=== PATIENT | female | born 1970 | race African-American/Black ===

== ENCOUNTER 2020-10-06 13:15 | Emergency (ER) | payer OTHER, SELFPAY ==
[2020-10-06 13:38] VITALS: BP 137/81; PULSE 70; RESP 20; TEMP 37.5; O2SAT 96; BMI 48.2
--- NOTE | 2020-10-06 13:56 | ECG_ITS ---
Test Reason : CHEST PAIN Blood Pressure : / mmHG Vent. Rate : 071 BPM Atrial Rate : 071 BPM P-R Int : 214 ms QRS Dur : 090 ms QT Int : 382 ms P-R-T Axes : 021 -46 -11 degrees QTc Int : 415 ms Sinus rhythm with 1st degree A-V block Left anterior fascicular block Possible Anterior infarct (cited on or before 31-JUL-2019) Abnormal ECG When compared with ECG of 31-JUL-2019 10:05, No significant change was found Referred By: Queta Jean Electronically Signed By:SINGH GARCIA MD
--- NOTE | 2020-10-06 13:56 | XR_ITS ---
EXAMINATION: XR CHEST CLINICAL INFORMATION: Chest and epigastric pain. COMPARISON: 07/31/2019 portable chest. TECHNIQUE: 2 views of the chest were obtained. FINDINGS: No significant abnormality is noted involving the heart, lungs, mediastinum, bony thorax or soft tissues. XR/XR chest 2V IMPRESSION: No acute cardiopulmonary process.
[2020-10-06 14:05] LABS: MANUAL DIFF FLAG NO
--- NOTE | 2020-10-06 14:08 | ED.CHESTPAIN ---
HPI - Chest Pain General Chief Complaint: Chest Pain Stated Complaint: chest pain, abd pain, diarrhea Time Seen by Provider: 10/06/20 13:56 Source: patient Mode of arrival: ambulatory Limitations: no limitations History of Present Illness HPI narrative: 50-year-old female with a past medical history of anxiety, asthma, depression, CVA with left-sided weakness, high cholesterol, hypertension here with complaints of epigastric pain with radiation up to the chest for 2 days. No nausea or vomiting. She does have some intermittent diarrhea. no fevers, chills, urinary symptoms. No cough. Pain is worsened after eating. She does have some intermittent shortness of breath was unchanged from previous. Of note, she was admitted 1 month ago to [facility] for similar symptoms. MD complaint: chest discomfort Onset (ago): day(s) Timing of current episode: episodic Prior episodes: Yes Onset: after eating Pain location: substernal and epigastric Pain radiation: none Severity: mild Quality: sharp Relieving factors: nothing Exacerbating factors: eating Treatment prior to arrival: none Related Data Allergies Allergy/AdvReac Type Severity Reaction Status Date / Time Penicillins [PENICILLINS] Allergy Unknown HIVES Verified 10/06/20 13:45 Review of Systems Review of Systems: Yes all other systems are reviewed and are negative Constitutional: Constitutional: Reports no additional constitutional complaints, Denies body ache(s), Denies chills, Denies fever(s), Denies headache(s) and Denies weakness Eyes: Eyes: Reports no additional eye complaints and Denies change in vision ENT: Reports system reviewed and no additional complaints, except as documented, Denies dizziness, Denies headache(s), Denies nasal congestion, Denies nasal discharge and Denies neck pain Cardiovascular: Cardiovascular: Reports no additional cardiovascular complaints, Reports chest pain, Denies leg edema and Denies dyspnea Respiratory: Respiratory: Reports no additional respiratory complaints, Denies cough and Denies dyspnea Gastrointestinal: Gastrointestinal: Reports no additional gastrointestinal complaints, Reports abdominal pain, Reports diarrhea, Denies nausea and Denies vomiting Genitourinary: Genitourinary: Reports no additional female genitourinary complaints and Denies urinary incontinence Musculoskeletal: Musculoskeletal: Reports no additional musculoskeletal complaints, Denies back pain, Denies arthralgias, Denies joint swelling, Denies neck pain, Denies numbness and Denies tingling Integumentary/Breasts: Skin/Breast: Reports system reviewed and no additional complaints, except as docu and Denies rash Neurologic: Reports system reviewed and no additional complaints, except as documented, Denies Abnormal speech present, Denies dizziness, Denies headache(s), Denies numbness, Denies tingling and Denies weakness PMFSH Past Medical History Attestation statement: The following information was validated with the patient. Source: old records reviewed and nursing notes reviewed Medical History Anxiety Asthma Depression H/O: CVA (cerebrovascular accident) High cholesterol HTN (hypertension) Social History Social History Smoking Status: Never smoker Use of substances other than those prescribed or required for medical reasons: No Advance Directives: No Advance Directives Information Provided: No Physical Exam Vital Signs: Vital Signs: Last Vital Signs Temp 98.8 F 10/06/20 15:53 Pulse 66 10/06/20 15:53 Resp 20 10/06/20 15:53 BP 161/94 H 10/06/20 15:53 Pulse Ox 97 10/06/20 15:53 Body Mass Index 48.2 Const: General: cooperative, healthy appearing, comfortable and no acute distress Orientation/consciousness: patient oriented x3 Limitations: no limitations HENMT: Head: Yes normal to inspection Ears: hearing grossly normal bilaterally General nose exam: Normal external nose present Face and sinus: Yes normal facial exam Mouth: Normal oral and palatal mucosa present Throat: Yes posterior oropharynx normal Eyes: General: appearance normal, both eyes and all related structures Pupils: Equal, round and reactive pupils present Neck: Neck: Yes normal visual inspection Chest: Other: pain with deep breathing Chest palpation & inspection: normal inspection of the chest Resp: Effort & Inspection: normal respiratory effort Auscultation: clear to auscultation bilaterally Cardio: Rate: regular rate Rhythm: regular rhythm Peripheral pulses: Peripheral pulses 2+ throughout GI: Inspection: Yes normal to inspection Palpation (GI): Soft to palpation, Tenderness to palpation present (GI) in the epigastrum; with no rebound tenderness and no guarding Auscultation: normal bowel sounds Back/Spine/Pelvis: Thoracic/Lumbar Spine: thoracic and lumbar spine normal to inspection Skin: General skin exam: no rashes or lesions noted Neuro: General: patient oriented x3, no focal motor deficits and normal sensation to monofilament Cranial nerves: Yes Equal, round and reactive pupils present Cognition (Neuro): normal cognition Speech: No Abnormal speech present Gait exam (Neuro): Normal gait present Motor exam (neuro): 5/5 motor strength present throughout Extrem: General: Yes normal to inspection Course Course Course Narrative: 50-year-old female here with 2 days of epigastric pain and pain in the chest with some diarrhea. On exam the patient's chest pain is more pleuritic in nature but she is tender in the epigastric area. Will need labs, EKG, chest x-ray. May also need additional imaging. Of note, patient admitted 08 19-08 20 for chest pain with serial troponins unremarkable at [facility] [place]. 171- Labs are unremarkable. Chest x-ray and EKG unremarkable. Abdominal ultrasound negative. Patient is feeling improved after receiving Pepcid and GI cocktail. She does have some pleuritic chest pain and elevated D-dimer so will check CTA to rule out underlying PE. Sign out to Marilee SANTAMARIA pending above MDM - Chest Pain MDM Narrative Medical decision making narrative: gatritis, cholecystitis, cholethithiasis, gerd, acs, pe less likely ACS with unremarkable EKG, negative troponin and symptoms greater than 24 hours. Medical Records Data Attestation: I reviewed the patient's medical records. Lab Data Attestation: I reviewed the patient's lab results. Result diagrams: 10/06/20 14:01 10/06/20 14: Labs: Lab Results 10/06/20 10/06/20 10/06/20 Range/Units 14:01 14:01 14:01 WBC 3.5 L (4.8-10.8) X10*3/uL RBC 4.59 (4.20-5.50) X10*6/uL Hgb 12.1 (12.0-16.0) g/dl Hct 35.8 L (37-47) % MCV 78.0 L (80-98) fL MCH 26.4 L (27.0-33.0) pg MCHC 33.8 (31.0-35.0) g/dl RDW 14.0 (11.0-16.0) % Plt Count 270 (160-400) X10*3/uL MPV 9.2 L (9.4-12.3) fL Immature Gran % (Auto) 0.3 (0.0-0.4) % Neut % (Auto) 43.8 L (45-73) % Lymph % (Auto) 40.8 H (20-40) % [place] % (Auto) 14.2 H (2-11) % Eos % (Auto) 0.6 (0-4) % Baso % (Auto) 0.3 (0-2) % Lymph # (Auto) 1.4 (1.2-4.9) X10*3/uL [place] # (Auto) 0.5 (0.1-1.2) X10*3/uL Eos # (Auto) 0.0 (0.0-0.4) X10*3/uL Baso # (Auto) 0.0 (0.0-0.2) X10*3/uL Abs Immat Gran (auto) 0.01 (0.00-0.03) X10*3/uL Absolute Neuts (auto) 1.6 L (2.0-8.3) X10*3/uL Absolute Nucleated RBC 0.000 (0.0-0.012) X10*3/uL Nucleated RBC % (auto) 0.0 (0.0-0.2) /100WBC PT 12.8 (10.8-13.0) SEC INR 1.1 (0.9-1.1) D-Dimer 314 NG/ML Sodium 141 (135-145) mmol/L Potassium 4.2 (3.3-5.1) mmol/l Chloride 106 (96-108) mmol/L Carbon Dioxide 27 (22-29) mmol/L Anion Gap 12 (12-20) BUN 15 (9-16) mg/dL Creatinine 0.97 (0.5-1.4) mg/dL Estim Creat Clear Calc 88.5 Estimated GFR > 60 Random Glucose 101 (60-115) mg/dL Calcium 9.1 (8.4-10.2) mg/dL Magnesium 2.1 (1.6-2.6) mg/dL Total Bilirubin 1.0 (0.0-1.0) mg/dL Direct Bilirubin 0.2 (0.0-0.5) mg/dL AST 24 (5-31) U/L ALT 22 (0-31) U/L Alkaline Phosphatase 88 (39-117) U/L Troponin I High Sens (<3.5-17.0) ng/L Total Protein 7.2 (6.5-8.0) g/dL Albumin 4.0 (3.5-5.0) g/dL Lipase 47 (8-78) U/L Urine Color Urine Appearance Urine pH (5.0-8.0) Ur Specific [place] (1.005-1.025) Urine Protein (NEG-TRACE) MG/DL Urine Glucose (UA) (NEG) MG/DL Urine Ketones (NEG) MG/DL Urine Blood (NEG) Urine Nitrite (NEG) Ur Leukocyte Esterase (NEG) 10/06/20 10/06/20 Range/Units 14:01 16:17 WBC (4.8-10.8) X10*3/uL RBC (4.20-5.50) X10*6/uL Hgb (12.0-16.0) g/dl Hct (37-47) % MCV (80-98) fL MCH (27.0-33.0) pg MCHC (31.0-35.0) g/dl RDW (11.0-16.0) % Plt Count (160-400) X10*3/uL MPV (9.4-12.3) fL Immature Gran % (Auto) (0.0-0.4) % Neut % (Auto) (45-73) % Lymph % (Auto) (20-40) % [place] % (Auto) (2-11) % Eos % (Auto) (0-4) % Baso % (Auto) (0-2) % Lymph # (Auto) (1.2-4.9) X10*3/uL [place] # (Auto) (0.1-1.2) X10*3/uL Eos # (Auto) (0.0-0.4) X10*3/uL Baso # (Auto) (0.0-0.2) X10*3/uL Abs Immat Gran (auto) (0.00-0.03) X10*3/uL Absolute Neuts (auto) (2.0-8.3) X10*3/uL Absolute Nucleated RBC (0.0-0.012) X10*3/uL Nucleated RBC % (auto) (0.0-0.2) /100WBC PT (10.8-13.0) SEC INR (0.9-1.1) D-Dimer NG/ML Sodium (135-145) mmol/L Potassium (3.3-5.1) mmol/l Chloride (96-108) mmol/L Carbon Dioxide (22-29) mmol/L Anion Gap (12-20) BUN (9-16) mg/dL Creatinine (0.5-1.4) mg/dL Estim Creat Clear Calc Estimated GFR Random Glucose (60-115) mg/dL Calcium (8.4-10.2) mg/dL Magnesium (1.6-2.6) mg/dL Total Bilirubin (0.0-1.0) mg/dL Direct Bilirubin (0.0-0.5) mg/dL AST (5-31) U/L ALT (0-31) U/L Alkaline Phosphatase (39-117) U/L Troponin I High Sens < 3.5 (<3.5-17.0) ng/L Total Protein (6.5-8.0) g/dL Albumin (3.5-5.0) g/dL Lipase (8-78) U/L Urine Color DARK YELLOW Urine Appearance CLEAR Urine pH 5.5 (5.0-8.0) Ur Specific [place] >= 1.030 H (1.005-1.025) Urine Protein NEG (NEG-TRACE) MG/DL Urine Glucose (UA) NEG (NEG) MG/DL Urine Ketones 5 (NEG) MG/DL Urine Blood NEG (NEG) Urine Nitrite NEG (NEG) Ur Leukocyte Esterase NEG (NEG) Imaging Data US - abdomen: Attestation: I personally reviewed and interpreted this imaging study as follows: Radiologist's impression: EXAMINATION: US ABDOMEN LIMITED CLINICAL INFORMATION: Upper quadrant pain. COMPARISON: Chest radiographs 10/06/2020 TECHNIQUE: Real-time curvilinear imaging limited to the gallbladder is performed portably at bedside in emergency department. Grayscale imaging and color Doppler are performed. Nonfasting. FINDINGS: The gallbladder is partially contracted. Wall is within normal, 0.3 cm. There is no visible stone or sludge. Steam Box Tender notes patient mildly tender gallbladder fossa with transducer compression. There is trace fluid upper quadrant. Common duct is normal measuring 0.3 cm. US/US abdomen limited IMPRESSION: 1. Gallbladder partially contracted. No visible stone or sludge. 2. Common duct normal in caliber 0.3 cm. 3. Trace fluid right upper quadrant. Chest x-ray: Attestation: I personally reviewed and interpreted this imaging study as follows: Radiologist's impression: [address] [address] XRay Report Signed Patient: Dain Butler#: [id number] : 1970Acct:[id number] Age/Sex: 50 / FADM Date: 10/06/20 Loc: .ED Attending Dr: Ordering Physician: QUETA ABARCA NP Date of Service: 10/06/20 Procedure(s): XR chest 2V Accession Number(s): [id number] cc: QUETA ABARCA NP~ EXAMINATION: XR CHEST CLINICAL INFORMATION: Chest and epigastric pain. COMPARISON: 07/31/2019 portable chest. TECHNIQUE: 2 views of the chest were obtained. FINDINGS: No significant abnormality is noted involving the heart, lungs, mediastinum, bony thorax or soft tissues. XR/XR chest 2V IMPRESSION: No acute cardiopulmonary process. ECG Data ECG #1: Attestation: I personally reviewed and interpreted this ECG as follows: ECG interpretation date: 10/06/20 ECG interpretation time: 13:27 Interpretation: Sinus rhythm with first-degree AV block, normal [place], normal QRS, normal QT
[2020-10-06 14:09] LABS: Basophils Percent Auto 0.3 % (0-2); Eosinophils Percent Auto 0.6 % (0-4); Hematocrit 35.8 % (37-47); Hemoglobin 12.1 g/dl (12.0-16.0); Imm Gran Abs Auto 0.01 X10*3/uL (0.00-0.03); Imm Gran Pct Auto 0.3 % (0.0-0.4); Lymphocytes Absolute Auto 1.4 X10*3/uL (1.2-4.9); Lymphocytes Percent Auto 40.8 % (20-40); Mean Corpuscular HGB Conc 33.8 g/dl (31.0-35.0); Mean Corpuscular Hemoglobin 26.4 pg (27.0-33.0); Mean Platelet Volume 9.2 fL (9.4-12.3); Monocytes Absolute Auto 0.5 X10*3/uL (0.1-1.2); Monocytes Percent Auto 14.2 % (2-11); Neutrophils Absolute Auto 1.6 X10*3/uL (2.0-8.3); Neutrophils Percent Auto 43.8 % (45-73); Platelet Count 270 X10*3/uL (160-400); Red Blood Count 4.59 X10*6/uL (4.20-5.50); White Blood Count 3.5 X10*3/uL (4.8-10.8)
[2020-10-06 14:12] LABS: INTERNATIONAL NORM RATIO 1.1 (0.9-1.1); Prothrombin Time 12.8 SEC (10.8-13.0)
[2020-10-06 14:31] LABS: Alanine Aminotransferase 22 U/L (0-31); Alkaline Phosphatase 88 U/L (39-117); Anion Gap 12 (12-20); Aspartate Amino Transferase 24 U/L (5-31); Bilirubin Direct 0.2 mg/dL (0.0-0.5); Blood Urea Nitrogen 15 mg/dL (9-16); Calcium 9.1 mg/dL (8.4-10.2); Carbon Dioxide 27 mmol/L (22-29); Chloride 106 mmol/L (96-108); Creatinine Clr Calc Pharmacy 88.5; Estimated Glomerular Filt Rate > 60; Glucose Random 101 mg/dL (60-115); Lipase 47 U/L (8-78); Magnesium 2.1 mg/dL (1.6-2.6); Potassium 4.2 mmol/l (3.3-5.1); Sodium 141 mmol/L (135-145); Total Protein 7.2 g/dL (6.5-8.0)
[2020-10-06 14:32] LABS: Troponin-I High Sensitivity < 3.5 ng/L (<3.5-17.0)
--- NOTE | 2020-10-06 14:38 | US_ITS ---
EXAMINATION: US ABDOMEN LIMITED CLINICAL INFORMATION: Upper quadrant pain. COMPARISON: Chest radiographs 10/06/2020 TECHNIQUE: Real-time curvilinear imaging limited to the gallbladder is performed portably at bedside in emergency department. Grayscale imaging and color Doppler are performed. Nonfasting. FINDINGS: The gallbladder is partially contracted. Wall is within normal, 0.3 cm. There is no visible stone or sludge. Metal Drilling Machine Operator notes patient mildly tender gallbladder fossa with transducer compression. There is trace fluid upper quadrant. Common duct is normal measuring 0.3 cm. US/US abdomen limited IMPRESSION: 1. Gallbladder partially contracted. No visible stone or sludge. 2. Common duct normal in caliber 0.3 cm. 3. Trace fluid right upper quadrant.
[2020-10-06] MEDS: Magnesium Hydrox/Alum Hydrox 30 ML ORAL.SUSP PO (15:35)
[2020-10-06] MEDS: Lidocaine HCl Viscous 2 % 15 ML SOLUTION MUCOUS MEM (15:35)
[2020-10-06] MEDS: Famotidine/PF 20 MG/2 ML VIAL IVPUSH (15:35)
[2020-10-06 15:53] VITALS: BP 161/94; PULSE 66; RESP 20; TEMP 37.1; O2SAT 97
[2020-10-06 16:24] LABS: D Dimer 314 NG/ML
[2020-10-06 16:33] LABS: Glucose Urine UA NEG (NEG); Leukocyte Esterase Urine NEG (NEG); Nitrite Urine NEG (NEG); PH 5.5 (5.0-8.0); Specific Gravity - Urine >= 1.030 (1.005-1.025); Urine Blood NEG (NEG); Urine Ketones 5 MG/DL (NEG); Urine Protein NEG (NEG-TRACE)
[2020-10-06 16:36] LABS: Appearance Urine CLEAR; Color Urine DARK YELLOW
--- NOTE | 2020-10-06 16:45 | CT_ITS ---
EXAMINATION: CTA CHEST CT ABDOMEN AND PELVIS WITH CONTRAST CLINICAL INFORMATION: Chest pain. Shortness of breath. Epigastric pain. Abdominal pain. COMPARISON: Ultrasound abdomen 10/06/2020. TECHNIQUE: A noncontrast localizer was performed, followed by the administration of 85 mL Omnipaque [address] of the chest was then performed. Coronal and sagittal reformatted and 3-D technique MIP images of the chest were completed at the CT scanner and reviewed on the PACS workstation. No adverse effects were reported. Images were then performed through the abdomen and pelvis. Coronal and sagittal reformatted images performed at CT scanner by technologist. [This CT examination was performed using dose optimization techniques as appropriate, variously including the following: *Automated exposure control *Adjustment of mA and/or kV according to patient size (this includes techniques or standardized protocols for targeted exams where dose is matched to indication/reason for exam; i.e. extremities or head) *Use of iterative reconstruction technique] DLP: 1506 mGy-cm. FINDINGS: CTA CHEST Vascular: The main pulmonary artery, secondary and tertiary branches of the pulmonary artery are normally opacified with no evidence of pulmonary embolism. The aorta and great vessels are unremarkable. Mediastinum: No mediastinal mass. No significant lymphadenopathy. There is no pericardial effusion. Lungs: Small focal airspace opacity in the subpleural lung in the right upper lobe sagittal image 68 series 11 there is no additional focal patchy airspace opacity in the dependent right lower lobe axial image 31/50 series 8 The left lung is normally aerated. Fluid: There is no pericardial effusion. There is no pleural effusion. Axilla: No significant lymphadenopathy. CT SCAN ABDOMEN/PELVIS: Liver, Gallbladder and Biliary Tree: The liver is normal in size, shape, and attenuation. No focal hepatic lesion or biliary ductal dilatation is present. The gallbladder is unremarkable with no evidence of radiopaque gallstones, gallbladder wall thickening, or obvious pericholecystic inflammatory changes. Pancreas: Unremarkable. Spleen: Sharply marginated low attenuating lesion measuring 2.5 cm within the spleen posteriorly. This is noncystic. Density measurement of 37 Hounsfield units. Nonspecific for etiology. Adrenal Glands: Unremarkable. Kidneys and Ureters: The kidneys are normal in size, shape, and attenuation. No hydronephrosis, hydroureter, or calculi seen. No perinephric stranding. Bladder: Unremarkable. Gastrointestinal Tract: The small and large bowel are unremarkable. The appendix is unremarkable. Abdominal Wall: No significant hernia is appreciated. Lymph Nodes: Normal. Vascular: Unremarkable. Pelvic Viscera: The uterus is absent. There is no pelvic abnormality. Osseous Structures: Unremarkable. CT/CT angio chest PE protocol IMPRESSION: 1. No evidence of pulmonary embolism. 2. Small multifocal airspace opacities in right lung in the right upper lobe and right lower lobe. 3. No acute abnormality of the abdomen or pelvis. There is a nonspecific 2.5 cm hypodense lesion in the spleen. This can be further characterized with dynamic MRI imaging
[2020-10-06] MEDS: iohexoL 350 MG/ML 100 ML INFUS..BTL IV (17:59)
[2020-10-06 18:44] VITALS: BP 151/78; PULSE 68; RESP 20; TEMP 37.1; O2SAT 98
[2020-10-06 20:44] LABS: Influenza A PCR NEGATIVE (Negative); Influenza B PCR NEGATIVE (Negative); Resp Syncy Virus RNA Qual PCR NEGATIVE (Negative); SARS COV2 PCR INHOUSE NEGATIVE (Negative)
== END 2020-10-06 19:51 | disposition home or self-care (01) ==
PROVIDERS: Nurse Practitioner Family; Physician Assistant Medical; Emergency Provider Emergency Medicine; PCP Internal Medicine
DX: R07.89 Other chest pain (principal); Z20.828 Contact with and (suspected) exposure to other viral communicable diseases; J18.9 Pneumonia, unspecified organism; D73.89 Other diseases of spleen; Z86.73 Personal history of transient ischemic attack (TIA), and cerebral infarction without residual deficits
CPT/HCPCS: 0241U; 36415; 71046; 71275; 74177; 76705; 80048; 80076; 81003; 83690; 83735; 84484; 85025; 85379; 85610; 93005; 96374; 99284; Q9967

== ENCOUNTER 2020-10-12 15:50 | Emergency (ER) | payer OTHER, SELFPAY ==
[2020-10-12 16:00] VITALS: RESP 20
--- NOTE | 2020-10-12 16:00 | ED.SOB ---
HPI - SOB/Dyspnea General Chief Complaint: Dyspnea Stated Complaint: SOB/Body aches Time Seen by Provider: 10/12/20 15:58 Source: patient Mode of arrival: ambulatory Limitations: no limitations History of Present Illness HPI Narrative: 50-year-old female with a past medical history of anxiety, asthma, depression, CVA, high cholesterol, hypertension here with shortness of breath, cough and body aches. Of note, patient seen here 10/06. Had a CTA which was negative for PE but showed a pneumonia. She was discharged home with a 5 day course of azithromycin. Continued symptoms. no chest pain, fevers or chills MD elicited complaint: shortness of breath and cough Pertinent past history: pneumonia Onset (ago): day(s) Timing: intermittent Severity: mild Exacerbating factors: exertion, movement and coughing Relieving factors: rest Associated symptoms: cough Treatment prior to arrival: none Related Data Previous Rx's Medication Instructions Recorded acetaminophen [Tylenol Extra 500 mg PO Q6H PRN #10 tab 10/06/20 Strength] azithromycin See Rx Instructions .ROUTE 10/06/20 .COMPLEX #3 tab doxycycline hyclate 100 mg PO BID #21 cap 10/12/20 Allergies Allergy/AdvReac Type Severity Reaction Status Date / Time Penicillins [PENICILLINS] Allergy Unknown HIVES Verified 10/06/20 13:45 Review of Systems Review of Systems: Yes all other systems are reviewed and are negative Constitutional: Constitutional: Reports no additional constitutional complaints, Reports body ache(s), Denies chills, Denies fever(s), Denies headache(s) and Denies weakness Eyes: Eyes: Reports no additional eye complaints and Denies change in vision ENT: Reports system reviewed and no additional complaints, except as documented, Denies dizziness, Denies headache(s), Denies nasal congestion, Denies nasal discharge and Denies neck pain Cardiovascular: Cardiovascular: Reports no additional cardiovascular complaints, Denies chest pain, Denies leg edema and Reports dyspnea Respiratory: Respiratory: Reports no additional respiratory complaints, Denies cough and Reports dyspnea Gastrointestinal: Gastrointestinal: Reports no additional gastrointestinal complaints, Denies abdominal pain, Denies diarrhea, Denies nausea and Denies vomiting Genitourinary: Genitourinary: Reports no additional female genitourinary complaints and Denies urinary incontinence Musculoskeletal: Musculoskeletal: Reports no additional musculoskeletal complaints, Denies back pain, Denies arthralgias, Denies joint swelling, Denies neck pain, Denies numbness and Denies tingling Integumentary/Breasts: Skin/Breast: Reports system reviewed and no additional complaints, except as docu and Denies rash Neurologic: Reports system reviewed and no additional complaints, except as documented, Denies Abnormal speech present, Denies dizziness, Denies headache(s), Denies numbness, Denies tingling and Denies weakness PMFSH Past Medical History Attestation statement: The following information was validated with the patient. Source: old records reviewed and nursing notes reviewed Medical History Anxiety Asthma Depression H/O: CVA (cerebrovascular accident) High cholesterol HTN (hypertension) Social History Social History Alcohol intake: never Smoking Status: Never smoker Use of substances other than those prescribed or required for medical reasons: No Advance Directives: No Advance Directives Information Provided: No Physical Exam Vital Signs: Vital Signs: Last Vital Signs Temp 99.6 F 10/12/20 16:09 Pulse 98 10/12/20 16:09 Resp 20 10/12/20 16:09 BP 139/96 H 10/12/20 16:09 Pulse Ox 96 10/12/20 19:18 Body Mass Index 49.9 Const: General: cooperative, healthy appearing, comfortable and no acute distress Orientation/consciousness: patient oriented x3 Limitations: no limitations HENMT: Head: Yes normal to inspection Ears: hearing grossly normal bilaterally General nose exam: Normal external nose present Face and sinus: Yes normal facial exam Mouth: Normal oral and palatal mucosa present Throat: Yes posterior oropharynx normal Eyes: General: appearance normal, both eyes and all related structures Pupils: Equal, round and reactive pupils present Neck: Neck: Yes normal visual inspection Chest: Chest palpation & inspection: normal inspection of the chest Resp: Effort & Inspection: normal respiratory effort Auscultation: clear to auscultation bilaterally Cardio: Rate: regular rate Rhythm: regular rhythm Peripheral pulses: Peripheral pulses 2+ throughout GI: Inspection: Yes normal to inspection Palpation (GI): Soft to palpation and nontender Auscultation: normal bowel sounds Back/Spine/Pelvis: Thoracic/Lumbar Spine: thoracic and lumbar spine normal to inspection Skin: General skin exam: no rashes or lesions noted Neuro: General: patient oriented x3, no focal motor deficits and normal sensation to monofilament Cranial nerves: Yes Equal, round and reactive pupils present Cognition (Neuro): normal cognition Speech: No Abnormal speech present Gait exam (Neuro): Normal gait present Motor exam (neuro): 5/5 motor strength present throughout Extrem: General: Yes normal to inspection Course Course Course Narrative: A 50-year-old female here with continued shortness of breath, cough and body aches after being diagnosed with a pneumonia 1 week ago. She completed a 5 day course of azithromycin but has continued symptoms. She also some chest discomfort which is worsened with coughing and deep breathing. She had a CTA 1 week ago which was negative for PE. She has stable vital signs. She is afebrile with stable saturations. She is speaking full sentences in no apparent distress. Chest x-ray today shows the continued right lower lobe infiltrate. EKG is unremarkable and her chest wall pain is likely secondary to coughing and not from ACS. Patient will need 2nd round of antibiotics. She ambulated with saturations greater than 98% around the unit. Discussed the findings with her. We reviewed worrisome signs and symptoms and when to return to the emergency department. Comfortable with discharge home. MDM - SOB/Dyspnea Medical Records Attestation: I reviewed the patient's medical records. Lab Data Attestation: I reviewed the patient's lab results. Imaging Data Chest x-ray: Attestation: I personally reviewed and interpreted this imaging study as follows: Radiologist's impression: EXAMINATION: XR CHEST CLINICAL INFORMATION: Cough. Shortness of breath. Recent pneumonia. COMPARISON: Chest x-ray and CTA chest 10/06/2020 TECHNIQUE: 2 views of the chest were obtained. FINDINGS: Cardiac silhouette is normal in size. Lungs are adequately aerated. Similar minimal elevation of the right hemidiaphragm. Subtle patchy opacity of the right lung base and right perihilar region are likely consistent with known multifocal airspace opacities. No gross lobar consolidation is visualized. No pleural effusion or pneumothorax. XR/XR chest 2V IMPRESSION: Similar patchy airspace disease of the right hemithorax. ECG Data Attestation: I personally reviewed and interpreted this ECG as follows: ECG interpretation date: 10/12/20 ECG interpretation time: 17:23 Interpretation: normal sinus rhythm, normal MN, normal QRS, normal QT, normal ST segment Discharge Plan Discharge Clinical Impression: Pneumonia Qualifiers: Pneumonia type: due to unspecified organism Laterality: right Lung location: lower lobe of lung Qualified Code(s): J18.9 - Pneumonia, unspecified organism Patient Disposition: Home, Self-Care Instructions: Community Acquired Pneumonia (ED) Additional Instructions: Start taking your antibiotics today Use your albuterol every 4-6 hours as needed for cough or wheezing Increase your fluids Rest Prescriptions: New doxycycline hyclate 100 mg capsule 100 mg PO BID Qty: 21 RF: 0 No Action azithromycin 500 mg tablet See Rx Instructions .ROUTE .COMPLEX Qty: 3 RF: 0 acetaminophen [Tylenol Extra Strength] 500 mg tablet 500 mg PO Q6H PRN (Reason: pain) Qty: 10 RF: 0 Referrals: Physician,Unknown [Primary Care Provider] - 2 days Interventions: ED Discharge Assessment Last Done: 10/12/20 19:34 Discharge Date/Time: 10/12/20 19:36
[2020-10-12 16:09] VITALS: BP 139/96; PULSE 98; RESP 20; TEMP 37.6; O2SAT 98; BMI 49.9
--- NOTE | 2020-10-12 16:30 | XR_ITS ---
EXAMINATION: XR CHEST CLINICAL INFORMATION: Cough. Shortness of breath. Recent pneumonia. COMPARISON: Chest x-ray and CTA chest 10/06/2020 TECHNIQUE: 2 views of the chest were obtained. FINDINGS: Cardiac silhouette is normal in size. Lungs are adequately aerated. Similar minimal elevation of the right hemidiaphragm. Subtle patchy opacity of the right lung base and right perihilar region are likely consistent with known multifocal airspace opacities. No gross lobar consolidation is visualized. No pleural effusion or pneumothorax. XR/XR chest 2V IMPRESSION: Similar patchy airspace disease of the right hemithorax.
--- NOTE | 2020-10-12 17:03 | ECG_ITS ---
Test Reason : SHORTNESS OF BREATH Blood Pressure : / mmHG Vent. Rate : 091 BPM Atrial Rate : 091 BPM P-R Int : 190 ms QRS Dur : 096 ms QT Int : 370 ms P-R-T Axes : 029 -60 -13 degrees QTc Int : 455 ms Normal sinus rhythm Left anterior fascicular block Nonspecific T wave abnormality Abnormal ECG When compared to the previous EKG of 06 aug 2020, no significant changes Referred By: Queta Jean Electronically Signed By:J CARLOS GARCIA
--- NOTE | 2020-10-12 17:58 | PC.NURSE ---
Resp Therapy at bedside.
[2020-10-12 19:18] VITALS: O2SAT 96
== END 2020-10-12 19:36 | disposition home or self-care (01) ==
PROVIDERS: Emergency Provider Emergency Medicine
DX: J18.9 Pneumonia, unspecified organism (principal); I10 Essential (primary) hypertension; Z86.73 Personal history of transient ischemic attack (TIA), and cerebral infarction without residual deficits; J45.909 Unspecified asthma, uncomplicated
CPT/HCPCS: 71046; 93005; 99283; 99284